=== PATIENT | male | born 1965 | race Hispanic/Latino ===

== ENCOUNTER 2020-08-27 01:14 | Outpatient (CLI) | payer MEDICARE, SELFPAY ==
[2020-08-27 16:30] LABS: SARS-CoV-2 RNA PCR Negative
== END 2020-08-27 01:15 | disposition home or self-care (01) ==
LOC: ANHCOVIDDT 01:15
PROVIDERS: PCP Family Medicine; Visit Provider Otolaryngology
DX: Z01.812 Encounter for preprocedural laboratory examination (principal); Z20.828 Contact with and (suspected) exposure to other viral communicable diseases
CPT/HCPCS: 87635; C9803; U0003

== ENCOUNTER 2020-08-27 08:29 | Outpatient (CLI) | payer MEDICARE, SELFPAY ==
--- NOTE | 2020-08-27 08:34 | ECG_ITS ---
Measurements Intervals [place] Rate: 80 P: 29 MI: 133 QRS: -10 QRSD: 97 T: 8 QT: 363 QTc: 421 Interpretive Statements SINUS RHYTHM BORDERLINE R WAVE PROGRESSION, ANTERIOR LEADS BASELINE ARTIFACT- I, III, AVL BORDERLINE ECG Electronically Signed On 08-27-2020 8:56:30 CDT by Adrian David D.O.
[2020-08-27 09:27] LABS: Anion Gap 9 mmol/L (8-16); Blood Urea Nitrogen 12 mg/dL (9-20); Calcium 8.8 mg/dL (8.4-10.2); Carbon Dioxide 31 mmol/L (22-30); Chloride 100 mmol/L (98-107); Estimated Glomerular Filt Rate > 60; Glucose 146 mg/dL (75-110); Potassium 4.1 mmol/L (3.4-5.0); Sodium 140 mmol/L (137-145)
[2020-08-27 09:28] LABS: INR 1.2; Prothrombin Time 14.6 Seconds (11.1-14.7)
[2020-08-27 09:29] LABS: Partial Thromboplastin Time 33.7 SECONDS (22.3-36.8)
== END 2020-08-27 08:30 | disposition home or self-care (01) ==
LOC: ANHSURGERY 08:34
PROVIDERS: Anesthesiology; PCP Family Medicine; Visit Provider Otolaryngology
DX: I25.2 Old myocardial infarction (principal); K76.9 Liver disease, unspecified; R94.31 Abnormal electrocardiogram [ECG] [EKG]
CPT/HCPCS: 36415; 80048; 85610; 85730; 87635; 93005; C9803; U0003